=== PATIENT | male | born 1975 | race African-American/Black ===

== ENCOUNTER 2016-06-18 22:51 | Emergency (ER) | payer SELFPAY ==
[2016-06-18] MEDS ORDERED: ACETAMINOPHEN 325 MG TABLET PO ONE (23:32)
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
[2016-06-19 04:05] VITALS: BP 145/94
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
== END 2016-06-19 04:21 | disposition home or self-care (01) ==
LOC: ER 22:51
DX: S09.90XA Unspecified injury of head, initial encounter (principal); H53.8 Other visual disturbances; F17.210 Nicotine dependence, cigarettes, uncomplicated; Y00.XXXA Assault by blunt object, initial encounter; Y92.009 Unspecified place in unspecified non-institutional (private) residence as the place of occurrence of the external cause
CPT/HCPCS: 99283